=== PATIENT | female | born 1995 | race Caucasian/White ===

== ENCOUNTER 2025-06-12 14:29 | Emergency (ER) | payer SELFPAY ==
[~2025-06-12] VITALS: Ht 160 cm; Wt 75.0 kg
[~2025-06-12 14:29] MED LIST: IBUP-2030 MT
[2025-06-12 14:33] VITALS: O2SAT 99
[2025-06-12] MEDS: ACETAMINOPHEN 500MG TABLET PO ONE (15:10)
[2025-06-12 16:17] LABS: GLUCOSE URINE NEGATIVE (NEGATIVE); KETONES URINE NEGATIVE (NEGATIVE); LEUKOCYTE ESTERASE URINE NEGATIVE (NEGATIVE); NITRITE URINE NEGATIVE (NEGATIVE); OCCULT BLOOD URINE 2+ (NEGATIVE); PH URINE 6.5 (4.5-8.0); PROTEIN URINE NEGATIVE (NEGATIVE); SPECIFIC GRAVITY URINE 1.009 (1.005-1.030); UROBILINOGEN URINE 0.2 E.U./dL (0.2-1.0)
[2025-06-12 16:30] LABS: COLOR URINE STRAW (YELLOW)
[2025-06-12 16:31] LABS: CLARITY URINE SL HAZY (CLEAR)
[2025-06-12 16:32] LABS: BACTERIA URINE TRACE; RBC URINE 0-2 /hpf (0-2); SQUAMOUS EPITHELIAL CELL URINE 1+ /lpf (RARE/1+); WBC URINE 0-2 /hpf (0-2)
[2025-06-12] MEDS ORDERED: ACET-2708 MT (19:30)
[2025-06-12 19:52] VITALS: BP 103/65; PULSE 80; RESP 14; TEMP 36.8; O2SAT 100
== END 2025-06-12 20:09 | disposition home or self-care (01) ==
LOC: ER 14:29
DX: R10.9 Unspecified abdominal pain (principal); N89.8 Other specified noninflammatory disorders of vagina; Z87.59 Personal history of other complications of pregnancy, childbirth and the puerperium
CPT/HCPCS: 81003; 81025; 74176; 99284; Z7610 ×2